=== PATIENT | female | born 1995 | race Caucasian/White ===

== ENCOUNTER 2018-10-02 15:57 | Emergency (ER) | payer MEDICAID, OTHER ==
[~2018-10-02] VITALS: Ht 144.8 cm; Wt 49.0 kg
[2018-10-02 16:28] VITALS: BP 128/83; PULSE 78; RESP 16; Ht 144.8 cm; Wt 49.0 kg
[2018-10-02] MEDS ORDERED: ACETAMINOPHEN 500 MG TAB PO STA (17:07)
[2018-10-02] MEDS ORDERED: ACET500C5 PO (17:09)
[2018-10-02] MEDS ORDERED: IBUP-1542 PO (17:09)
[2018-10-02] MEDS ORDERED: SULF1TAB31 PO (17:09)
[2018-10-02] MEDS ORDERED: CEPH-443 PO (17:09)
[2018-10-02] MEDS ORDERED: LIDOCAINE 1% (MPF) 5 ML VIAL INJ ONE (17:30)
[2018-10-02] MEDS ORDERED: IBUPROFEN 600 MG TAB PO ONE (17:30)
[2018-10-02] MEDS ORDERED: CEFTRIAXONE 1 GM INJ IM ONE (17:30)
--- NOTE | 2018-10-02 17:42 | ERD ---
ER Documentation Chief Complaint Chief Complaint CP WITH LEFT ARM PAIN HPI This is a 23-year-old female denies significant past medical history presents ED with complaints of left anterior chest pain particularly around the breast times 1 day. Admits to swelling and redness along breast. Does not breast-feed. Zoie craig states that around 4:30 PM yesterday she started noticing the pain as she was standing. 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 States that pain is constant, rates it a 6 out of 10 and states that it waxes and wanes in severity. Patient states the pain is better with lying down. Admits to fevers. Denies shortness breath, trouble breathing, pleuritic chest pain, cough, congestion, runny nose, sputum production, nausea, vomiting, diarrhea, constipation. Admits to having a nipple piercing placed 1 year ago ROS All systems reviewed and are negative except as per history of present illness. Medications Home Meds Active Scripts Sulfamethoxazole/Trimethoprim* (Bactrim Ds* Tablet) 1 Each Tablet, 1 TAB PO BID, #14 TAB Prov:RADHA HILTON PA-C 10/02/18 Cephalexin* (Keflex*) 500 Mg Capsule, 500 MG PO QID for 7 Days, CAP Prov:RADHA HILTON PA-C 10/02/18 Ibuprofen* (Motrin*) 600 Mg Tab, 600 MG PO Q6, #30 TAB Prov:RADHA HILTON PA-C 10/02/18 Acetaminophen* (Tylophen*) 500 Mg Capsule, 1 CAP PO Q6H PRN for PAIN AND OR ELEVATED TEMP, #20 CAP Prov:RADHA HILTON PA-C 10/02/18 Allergies Allergies: Coded Allergies: ciprofloxacin (Verified Allergy, Intermediate, RASH, 10/02/18) PMhx/Soc Medical and Surgical Hx: pt denies Medical Hx, pt denies Surgical Hx Hx Alcohol Use: No Hx Substance Use: No Hx Tobacco Use: No Smoking Status: Never smoker FmHx Family History: No diabetes Physical Exam Vitals Vital Signs Date Temp Pulse Resp B/P (MAP) Pulse Ox O2 O2 Flow FiO2 Time Delivery Rate 10/02/18 99.7 78 16 128/83 97 16:28 (98) Physical Exam Const: No acute distress Head: Atraumatic Eyes: Normal Conjunctiva ENT: Normal External Ears, Nose and Mouth. Neck: Full range of motion. No meningismus. Resp: Clear to auscultation bilaterally Cardio: Regular rate and rhythm, no murmurs breast: There is redness along the left medial breast with some tenderness palpation, no fluctuant mass palpated, mild swelling, warmth,, no flail chest, no increased AP diameter, Abd: Soft, non tender, non distended. Normal bowel sounds Skin: No petechiae or rashes Neur: Awake and alert Psych: Normal Mood and Affect Results 24 hrs Current Medications Medications Dose Sig/Kinsey Start Time Status Last (Trade) Ordered Route PRN Stop Time Admin Dose Reason Admin Ceftriaxone 1 gm ONCE ONCE 10/02/18 DC 10/02/18 Sodium IM 17:30 17:16 (Rocephin) 10/02/18 17:31 1,000 mg ONCE STAT 10/02/18 DC 10/02/18 Acetaminophen PO 17:07 17:16 (Tylenol 10/02/18 17:08 Tab) Ibuprofen 600 mg ONCE ONCE 10/02/18 DC 10/02/18 (Motrin) PO 17:30 17:16 10/02/18 17:31 Lidocaine 5 ml ONCE ONCE 10/02/18 DC 10/02/18 (Xylocaine INJ 17:30 17:17 1% (Mpf)) 10/02/18 17:31 Procedures/MDM EKG read by ekstella: Rate/Rhythm: Regular rhythm at a rate of 111 Intervals: Normal Impression: No evidence of ischemia or arrhythmia ER COURSE: The patient was given ceftriaxone, Tylenol, ibuprofen The medication was well tolerated and the patient reports improvement in symptoms. The patient was stable throughout ED course. I kept the patient and/or family informed of laboratory and diagnostic imaging results throughout the emergency room course. The patient was promptly evaluated and a treatment plan was devised based on H&P and other data. This plan was discussed with the patient who agreed and had no further questions or concerns prior to discharge. MEDICAL DECISION MAKING: This is a 23-year-old female presents ED with cellulitis of left breast times 1 day. Cellulitis was likely caused by recent nipple piercing. This is likely cellutlitis. There is no lymphatic streaking. There is no fluctuant mass or abscess to be drained. Low suspicion for deep space infection, compartment syndrome, abscess, sepsis, neurovascular injury, tendon injury, ACS, aortic dissection, pneumonia, pneumothorax, tension pneumothorax, PE,. Patient is not tachycardic, nontachypneic and is hemodynamically stable. Patient's vitals are stable and pt can be managed with close outpatient follow-up. Advised patient follow-up with primary care in the next 48 hours. Advised to return to ED with any worsening symptoms. Discussed with patient about taking a nipple piercing out. DISPOSITION PLAN: We discussed follow up with the patient's primary care doctor within 24 to 48 hours. Patient counseled regarding my diagnostic impression and care plan. Prior to discharge all questions answered. Pt agrees with treatment plan and understands strict return precautions. Precautionary instructions provided including instructions to return to the ER if not improving or for any worsening or changing symptoms or concerns. SPECIALIST FOLLOW UP RECOMMENDED: None Patient has been advised to follow up with primary care in 1-2 days. Disclaimer: Inadvertent spelling and grammatical errors are likely due to EHR/dictation software use and do not reflect on the overall quality of patient care. Also, please note that the electronic time recorded on this note does not necessarily reflect the actual time of the patient encounter. Departure Diagnosis: Primary Impression: Cellulitis of left breast Condition: Stable Patient Instructions: Cellulitis Referrals: [facility] YOU HAVE RECEIVED A MEDICAL SCREENING EXAM AND THE RESULTS INDICATE THAT YOU DO NOT HAVE A CONDITION THAT REQUIRES URGENT TREATMENT IN THE EMERGENCY DEPARTMENT. FURTHER EVALUATION AND TREATMENT OF YOUR CONDITION CAN WAIT UNTIL YOU ARE SEEN IN YOUR DOCTORS OFFICE WITHIN THE NEXT 1-2 DAYS. IT IS YOUR RESPONSIBILITY TO MAKE AN APPOINTMENT FOR FOLOW-UP CARE. IF YOU HAVE A PRIMARY DOCTOR --you should call your primary doctor and schedule an appointment IF YOU DO NOT HAVE A PRIMARY DOCTOR YOU CAN CALL OUR PHYSICIAN REFERRAL HOTLINE AT IF YOU CAN NOT AFFORD TO SEE A PHYSICIAN YOU CAN CHOSE FROM THE FOLLOWING [facility] [address] [facility]. [facility] [address] [facility]. [facility] [address] [facility] [address] [facility] [address] [facility] [address] Additional Instructions: Patient advised to return to the ED immediately for new or worsening symptoms. Patient advised to follow up with primary care provider in the next 24-48 hours. Patient verbalized understanding and agrees with treatment plan and course of action. If patient has no primary care they may follow up with one of the community clinics listed on the following page or one of the options listed below [facility] + [facility] [address] [place] [id number] or [facility] [address] [place] [address] or [facility] [address] [place] [address] RADHA HILTON PA-C Oct 02, 2018 17:42
== END 2018-10-02 17:43 | disposition home or self-care (01) ==
LOC: FTE 15:57
DX: N61.0 Mastitis without abscess (principal)
CPT/HCPCS: 93005; 96372; J0696; Z7502; Z7610